=== PATIENT | male | born 1985 | race Hispanic/Latino ===

== ENCOUNTER 2020-05-27 08:46 | Emergency (ER) | payer SELFPAY ==
[~2020-05-27] VITALS: Ht 167.6 cm; Wt 74.8 kg
[2020-05-27] MEDS ORDERED: DEXAMETHASONE 4 MG TAB PO STA (09:00)
[2020-05-27] MEDS ORDERED: KETOROLAC TROMETHAMINE 30 MG/ML VIAL IM STA (09:00)
[2020-05-27 10:08] VITALS: BP 125/80
== END 2020-05-27 10:08 | disposition home or self-care (01) ==
LOC: ER 08:52
DX: M25.511 Pain in right shoulder (principal); S46.911A Strain of unspecified muscle, fascia and tendon at shoulder and upper arm level, right arm, initial encounter; I10 Essential (primary) hypertension; E11.9 Type 2 diabetes mellitus without complications
CPT/HCPCS: 71045; 73030; 93005; 99283; J1885; J8540

== ENCOUNTER 2021-08-29 19:29 | Emergency (ER) | payer SELFPAY ==
[~2021-08-29] VITALS: Ht 167.6 cm; Wt 74.8 kg
[2021-08-29] MEDS ORDERED: LEVETIRACETAM 500 MG TAB PO ONE (19:45)
== END 2021-08-29 20:38 | disposition home or self-care (01) ==
LOC: ER 19:34
DX: G40.909 Epilepsy, unspecified, not intractable, without status epilepticus (principal); I10 Essential (primary) hypertension; E11.9 Type 2 diabetes mellitus without complications
CPT/HCPCS: 99283

== ENCOUNTER 2021-09-01 10:57 | Emergency (ER) | payer SELFPAY ==
[~2021-09-01] VITALS: Ht 167.6 cm; Wt 74.8 kg
== END 2021-09-01 12:34 | disposition home or self-care (01) ==
LOC: ER 11:05
DX: R05.9 Cough, unspecified (principal); J45.909 Unspecified asthma, uncomplicated; G40.909 Epilepsy, unspecified, not intractable, without status epilepticus
CPT/HCPCS: 71045; 99283